=== PATIENT | female | born 1990 | race Caucasian/White ===

== ENCOUNTER 2024-08-31 17:29 | Emergency (ER) | payer OTHER ==
[2024-08-31 18:30] VITALS: TEMP 97.8
--- NOTE | 2024-08-31 18:46 | ED ---
Abdominal Pain HPI - General Source: patient, RN notes reviewed Mode of arrival: ambulatory Limitations: no limitations - History of Present Illness MD Complaint: abdominal pain Onset/Timin -: hour(s) Location: suprapubic Severity scale (1-10): 6 Quality: sharp <Clarke Mendez - Last Filed: 08/31/24 18:46> - General Source: RN notes reviewed, old records reviewed Mode of arrival: ambulatory Limitations: no limitations - History of Present Illness -: hour(s) Location: suprapubic Radiation: suprapubic Severity scale (1-10): 6 Quality: fullness, sharp Consistency: constant Improves With: nothing Worsens With: nothing Associated Symptoms: nausea, vomiting Treatments Prior to Arrival: other (0) <Ted Mojica - Last Filed: 09/04/24 21:26> - General Chief Complaint: Abdominal Pain Stated Complaint: abd pain Time Seen by Provider: 08/31/24 17:45 - History of Present Illness Initial Comments: Quick note: This is a 34-year-old female presenting with recurrent vaginal bleeding and sharp stabbing pelvic pain and contractions since 1 PM today. Patient states left-sided contractions occur for 30 seconds before resolving for 5 minutes before resuming again. Patient endorses significant blood clots initially with blood clots becoming more infrequent, often occurring with contractions. Patient states pain is 6 out of 10 during contractions. Patient endorses history of 2 tubal ligation denies concern for . Patient denies fevers, chills, N/V/D, urinary symptoms (Clarke Mendez) This is a 34-year-old female to abdominal pain severe abdominal pain here in the ER history of tubal ligation no , patient also having bleeding (Ted Mojica) - Related Data Allergies Allergy/AdvReac Type Severity Reaction Status Date / Time amoxicillin Allergy Unknown Verified 08/31/24 18:31 Penicillins Allergy Unknown Verified 08/31/24 18:31 Review of Systems ROS Other: All systems not noted in ROS Statement are negative. <Clarke Mendez - Last Filed: 08/31/24 18:46> ROS Other: All systems not noted in ROS Statement are negative. <Ted Mojica - Last Filed: 09/04/24 21:26> ROS Statement: Those systems with pertinent positive or pertinent negative responses have been documented in the HPI. Past Medical History Past Medical History: Diabetes Mellitus Additional Past Medical History / Comment(s): ovarian cysts, hypothroidism, herpes History of Any Multi-Drug Resistant Organisms: None Reported Past Surgical History: Cholecystectomy, Tubal Ligation Additional Past Surgical History / Comment(s): ovarian scrapped, Past Psychological History: Bipolar, Depression Smoking Status: Current every day smoker Past Alcohol Use History: Daily Past Drug Use History: Marijuana <Clarke Mendez - Last Filed: 08/31/24 18:46> General Exam Limitations: no limitations <Clarke Mendez - Last Filed: 08/31/24 18:46> General appearance: alert, in no apparent distress, anxious Head exam: Present: atraumatic, normocephalic, normal inspection Eye exam: Present: normal appearance, PERRL, EOMI. Absent: scleral icterus, conjunctival injection, periorbital swelling ENT exam: Present: normal exam, mucous membranes moist Neck exam: Present: normal inspection. Absent: tenderness, meningismus, lymphadenopathy Respiratory exam: Present: normal lung sounds bilaterally. Absent: respiratory distress, wheezes, rales, rhonchi, stridor Cardiovascular Exam: Present: regular rate, normal rhythm, normal heart sounds. Absent: systolic murmur, diastolic murmur, rubs, gallop, clicks GI/Abdominal exam: Present: soft, normal bowel sounds. Absent: distended, tenderness, guarding, rebound, rigid Extremities exam: Present: normal inspection, full ROM, normal capillary refill. Absent: tenderness, pedal edema, joint swelling, calf tenderness Back exam: Present: normal inspection Neurological exam: Present: alert, oriented X3, CN II-XII intact Psychiatric exam: Present: normal affect, normal mood Skin exam: Present: warm, dry, intact, normal color. Absent: rash <Ted Mojica - Last Filed: 09/04/24 21:26> - General Exam Comments Initial Comments: Visual Physical Exam Vital signs reviewed General: Well-appearing, nontoxic, no acute distress. Head: Normocephalic, atraumatic Eyes: PERRLA, EOMI ENT: Airway patent Chest: Nonlabored breathing Skin: No visual rash, normal skin tone Neuro: Alert and oriented 3 Musculoskeletal: No gross abnormalities (Clarke Mendez) Course <Ted Mojica - Last Filed: 09/04/24 21:26> Vital Signs 08/31/24 08/31/24 08/31/24 18:25 19:57 22:30 Temperature 97.8 F 97.8 F 97.8 F Pulse Rate 82 81 100 Respiratory 20 18 18 Rate Blood Pressure 134/80 129/82 129/86 O2 Sat by Pulse 98 97 100 Oximetry - Reevaluation(s) Reevaluation #1: 08/31/24 20:17 Medical records reviewed (Ted Mojica) Reevaluation #2: 08/31/24 20:17 Patient symptoms improved (Ted Mojica) Reevaluation #3: 08/31/24 20:17 Patient informed of results questions answered (Ted Mojica) Reevaluation #4: Was pt. sent in by a medical professional or institution (, PA, LITHOGRAPHY CONTACT WORKER, urgent care, hospital, or alf...) When possible be specific @ -no Did you speak to anyone other than the patient for history (EMS, parent, family, police, friend...)? What history was obtained from this source @ -no Did you review nursing and triage notes (agree or disagree)? Why? @ -agree Are old charts reviewed (outside hosp., previous admission, EMS record, old EKG, old radiological studies, urgent care reports/EKG's, alf records)? Report findings @ -yes Differential Diagnosis (chest pain, altered mental status, abdominal pain women, abdominal pain men, vaginal bleeding, weakness, fever, dyspnea, syncope, headache, dizziness, GI bleed, back pain, seizure, CVA, palpatations, mental health, musculoskeletal)? @ -prior EKG interpreted by me (3pts min.). @ -no X-rays interpreted by me (1pt min.). @ -no CT interpreted by me (1pt min.). @ -no U/S interpreted by me (1pt. min.). @ -yes negative for acute disease What testing was considered but not performed or refused? (CT, X-rays, U/S, labs)? Why? @ -none What meds were considered but not given or refused? Why? @ -none Did you discuss the management of the patient with other professionals (professionals i.e. , PA, LITHOGRAPHY CONTACT WORKER, lab, RT, psych nurse, drug abuse social worker, retirement officer, teacher, retirement officer, catalytic case operator)? Give summary @ -no Was smoking cessation discussed for >3mins.? @ -no Was critical care preformed (if so, how long)? @ -no Were there social determinants of health that impacted care today? How? (Homelessness, low income, unemployed, alcoholism, drug addiction, transportation, low edu. Level, literacy, decrease access to med. care, long term, rehab)? @ -none Was there de-escalation of care discussed even if they declined (Discuss DNR or withdrawal of care, Hospice)? DNR status @ -no What co-morbidities impacted this encounter? (DM, HTN, Smoking, COPD, CAD, Cancer, CVA, ARF, Chemo, Hep., AIDS, mental health diagnosis, sleep apnea, morbid obesity)? @ -none Was patient admitted / discharged? Hospital course, mention meds given and route, prescriptions, significant lab abnormalities, going to OR and other pertinent info. @ - 34 female to the ER for evaluation abdominal pain and vagina bleeding, patient was recently sent home from [place] secondary to this pain. Patient is not requiring pain medication here in the ER she did take her IV out in frustration of ER stay, patient is very frustrated with the fact that she was accepted to [place], she has nowhere to go, patient has normal ultrasound here in the ER and can be discharged home Discharge Undiagnosed new problem with uncertain prognosis? @ -no Drug Therapy requiring intensive monitoring for toxicity (Heparin, Nitro, Insulin, Cardizem)? @ -no Were any procedures done? @ -no Diagnosis/symptom? @ -Abdominal pain Acute, or Chronic, or Acute on Chronic? @ -Acute Uncomplicated (without systemic symptoms) or Complicated (systemic symptoms)? @ -Complicated Side effects of treatment? @ -no Exacerbation, Progression, or Severe Exacerbation? @ -exacerbation Poses a threat to life or bodily function? How? (Chest pain, [place], [place], pneumonia, PE, COPD, DKA, ARF, appy, cholecystitis, CVA, Diverticulitis, Homicidal, Suicidal, threat to staff... and all critical care pts) @ -no (Ted Mojica) Reevaluation #5: Differential Abdominal Pain Women: Appendicitis, Cholecystitis, diverticulosis, ischemic bowel, pancreatitis, hepatitis, UTI, gastroenteritis, AAA, incarcerated hernia, bowel obstruction, constipation, inflammatory bowel, hepatitis, peptic ulcer disease, splenic infarction, perforated viscus, vulvitis, ovarian torsion, PID, kidney stone, placenta abruption, this is not meant to be an all-inclusive list (Ted Mojica) Medical Decision Making <Clarke Mendez - Last Filed: 08/31/24 18:46> - Radiology Data Radiology results: report reviewed (Ultrasound pelvis negative for acute disease), image reviewed <Ted Mojica - Last Filed: 09/04/24 21:26> - Medical Decision Making I completed the quick note portion of this chart signed HAMZAH Rivero (Clarke Mendez) 34 female to the ER for evaluation abdominal pain and vagina bleeding, patient was recently sent home from [place] secondary to this pain. Patient is not requiring pain medication here in the ER she did take her IV out in frustration of ER stay, patient is very frustrated with the fact that she was accepted to [place], she has nowhere to go, patient has normal ultrasound here in the ER and can be discharged home (Ted Mojica) Disposition <Clarke Mendez - Last Filed: 08/31/24 18:46> Is patient prescribed a controlled substance at d/c from ED?: No Time of Disposition: 20:15 <Ted Mojica - Last Filed: 09/04/24 21:26> Clinical Impression: Abdominal pain Disposition: HOME SELF-CARE Condition: Good Instructions (If sedation given, give patient instructions): Abdominal Pain (ED) Referrals: None,Stated [REFERRING] - 1-2 days
[2024-08-31 19:58] VITALS: RESP 18
[2024-08-31] MEDS: LORazepam 1 MG TAB PO STA (19:58)
[2024-08-31] MEDS: HYDROcodone/APAP 5-325MG 1 EACH TAB PO STA (19:58)
--- NOTE | 2024-08-31 20:11 | US ---
EXAMINATION TYPE: US pelvic complete DATE OF EXAM: 08/31/2024 COMPARISON: NONE CLINICAL INDICATION: Female, 34 years old with history of Vag bleeding with contractions, history of tub lig; pain Transabdominal only per Doctor. Exam limited due to bowel gas. TECHNIQUE: Transabdominal (TA). FINDINGS: Date of LMP: now EXAM MEASUREMENTS: Uterus: 8.3 x 5.3 x 6.1 cm Endometrial Stripe: .9 cm Left Ovary: 2.1 x 1.5 x 1.5 cm There is some limitation due to bowel gas present. 1. Uterus: Anteverted 2. Endometrium: wnl 3. Right Ovary: Obscured by overlying bowel gas 4. Left Ovary: appears wnl 5. Bilateral Adnexa: wnl 6. Posterior cul-de-sac: wnl IMPRESSION: No suspicious acute ultrasound pelvic changes [facility], Workstation: [facility], 08/31/2024 8:08 PM
[2024-08-31 22:36] VITALS: BP 129/86; PULSE 100
== END 2024-08-31 22:30 | disposition home or self-care (01) ==
LOC: EC 17:29
CPT/HCPCS: 76856; 99284

== ENCOUNTER 2024-09-06 11:22 | Emergency (ER) | payer OTHER ==
[2024-09-06 11:52] VITALS: TEMP 98.7
[2024-09-06 12:41] LABS: Basophils # (A) 0.1 k/uL (0-0.2); Basophils % (A) 0 %; Eosinophils # (A) 0.2 k/uL (0-0.7); Eosinophils % (A) 2 %; HCT 44.9 % (34.0-46.0); HGB 15.2 gm/dL (11.4-16.0); Lymphocytes # (A) 2.1 k/uL (1.0-4.8); Lymphocytes % (A) 18 %; MCH 32.7 pg (25.0-35.0); MCHC 33.8 g/dL (31.0-37.0); MCV 96.8 fL (80.0-100.0); Mean Platelet Volume 7.3; Monocytes # (A) 0.4 k/uL (0-1.0); Monocytes % (A) 4 %; Neutrophils # (A) 8.5 k/uL (1.3-7.7); Neutrophils % (A) 75 %; Platelet Count 319 k/uL (150-450); RBC 4.64 m/uL (3.80-5.40); RDW 12.4 % (11.5-15.5); WBC 11.3 k/uL (3.8-10.6)
[2024-09-06 12:55] LABS: ALT 18 U/L (4-34); AST 17 U/L (14-36); African American GFR (CKD) >90 (>60 ml/min/1.73 sqM); Albumin 3.7 g/dL (3.5-5.0); Alkaline Phosphatase 87 U/L (38-126); Anion Gap 2 mmol/L; Blood Urea Nitrogen 16 mg/dL (7-17); Calcium 8.8 mg/dL (8.4-10.2); Carbon Dioxide 30 mmol/L (22-30); Chloride 101 mmol/L (98-107); Glucose 308 mg/dL (74-99); INR 0.9 (<1.2); Magnesium 1.8 mg/dL (1.6-2.3); Non-African American GFR(CKD) >90 (>60 ml/min/1.73 sqM); Partial Thromboplastin Time 23.5 sec (22.0-30.0); Potassium 5.2 mmol/L (3.5-5.1); Prothrombin Time 9.7 sec (10.0-12.5); Sodium 133 mmol/L (137-145); Total Bilirubin 0.4 mg/dL (0.2-1.3); Total Protein 6.3 g/dL (6.3-8.2)
--- NOTE | 2024-09-06 12:55 | XR ---
EXAMINATION TYPE: XR chest 2V DATE OF EXAM: 09/06/2024 COMPARISON: None HISTORY: 34-year-old female with chest pain TECHNIQUE: PA and lateral views FINDINGS: Heart normal size. Aorta and pulmonary vasculature within normal limits. Some stringy atelectasis in the lower lungs without consolidation or pleural effusion. IMPRESSION: Strandy atelectasis in the lower lungs. Otherwise, no acute process seen. [facility], , 09/06/2024 12:53 PM
--- NOTE | 2024-09-06 13:05 | ED ---
Chest Pain HPI - General Chief Complaint: Chest Pain Stated Complaint: Chest Pain Time Seen by Provider: 09/06/24 11:38 Source: patient, EMS, RN notes reviewed Mode of arrival: EMS - History of Present Illness Initial Comments: This is a 34-year-old female with a history of type 2 diabetes presenting to the emergency department via EMS to [facility] due to symptoms of chest pain. States that chest pain is located in the center of her chest and radiated into her back. Patient states that pain lasted for approximately 1 hour and after EMS administered medications including aspirin and nitro and fluids her sinus pain has resolved. Patient states that pain is slightly reproducible on palpation. Currently she is denying chest pain, heart palpitations, dizziness, lightheadedness, nausea, vomiting, cough, fevers, chills. She is at [facility] due to history of crack abuse. - Related Data Home Medications Medication Instructions Recorded Confirmed Glimepiride [Amaryl] 2 mg PO BID 09/06/24 09/06/24 Levothyroxine Sodium [Synthroid] 125 mcg PO DAILY 09/06/24 09/06/24 metFORMIN HCL 500 mg PO BID 09/06/24 09/06/24 valACYclovir HCL [Valacyclovir] 1,000 mg PO BID 09/06/24 09/06/24 Allergies Allergy/AdvReac Type Severity Reaction Status Date / Time amoxicillin Allergy Unknown Verified 09/06/24 14:39 Penicillins Allergy Unknown Verified 09/06/24 14:39 Review of Systems ROS Statement: Those systems with pertinent positive or pertinent negative responses have been documented in the HPI. ROS Other: All systems not noted in ROS Statement are negative. Past Medical History Past Medical History: Diabetes Mellitus, Thyroid Disorder Additional Past Medical History / Comment(s): ovarian cysts, hypothroidism, h erpes, in scared heart for cocaine History of Any Multi-Drug Resistant Organisms: None Reported Past Surgical History: Cholecystectomy, Tubal Ligation Additional Past Surgical History / Comment(s): ovarian scrapped, Past Psychological History: Bipolar, Depression Smoking Status: Current every day smoker Past Alcohol Use History: None Reported Past Drug Use History: Cocaine, Marijuana General Exam General appearance: alert, in no apparent distress Eye exam: Present: normal appearance, PERRL, EOMI. Absent: scleral icterus, conjunctival injection, periorbital swelling ENT exam: Present: normal exam, mucous membranes moist Neck exam: Present: normal inspection. Absent: tenderness, meningismus, lymphadenopathy Respiratory exam: Present: normal lung sounds bilaterally, chest wall tenderness (anterior chest wall to palaption). Absent: respiratory distress, wheezes, rales, rhonchi, stridor Cardiovascular Exam: Present: regular rate, normal rhythm, normal heart sounds. Absent: systolic murmur, diastolic murmur, rubs, gallop, clicks GI/Abdominal exam: Present: soft, normal bowel sounds. Absent: distended, tenderness, guarding, rebound, rigid Extremities exam: Present: normal inspection, full ROM, normal capillary refill. Absent: tenderness, pedal edema, joint swelling, calf tenderness Back exam: Present: normal inspection Neurological exam: Present: alert, oriented X3, CN II-XII intact Psychiatric exam: Present: normal affect, normal mood Skin exam: Present: warm, dry, intact, normal color. Absent: rash Course Vital Signs 09/06/24 09/06/24 09/06/24 11:49 12:20 15:01 Temperature 98.7 F Pulse Rate 95 95 Pulse Rate [ 80 Is Consultant ] Respiratory 16 20 Rate Blood Pressure 128/85 116/84 O2 Sat by Pulse 99 97 Oximetry Chest Pain MDM - MDM Was pt. sent in by a medical professional or institution (BRADY Guerra, CORE FEEDER, urgent care, hospital, or penitentiary...) When possible be specific @ -Was sent in by [facility] due to complaints of chest pain. Did you speak to anyone other than the patient for history (EMS, parent, family, police, friend...)? What history was obtained from this source @ -No Did you review nursing and triage notes (agree or disagree)? Why? @ -I reviewed and agree with nursing and triage notes Were old charts reviewed (outside hosp., previous admission, EMS record, old EKG, old radiological studies, urgent care reports/EKG's, penitentiary records)? Report findings @ -No old charts were reviewed Differential Diagnosis (chest pain, altered mental status, abdominal pain women, abdominal pain men, vaginal bleeding, weakness, fever, dyspnea, syncope, headache, dizziness, GI bleed, back pain, seizure, CVA, palpatations, mental health, musculoskeletal)? @ -Differential Chest Pain: Stable Angina, Unstable Angina, STEMI, NSTEMI Aortic Dissection, Pneumothorax, Musculoskeletal, Esophageal Spasm GERD, Cholecystitis, Pancreatitis, Zoster, this is not meant to be an all-inclusive list. EKG interpreted by me (3pts min.). @ -completed at 1220 sinus rhythm with a ventricular rate of 80, NH interval 133, QRS 89, QTc 395. No acute signs of ischemia. Early repolarization is evident. X-rays interpreted by me (1pt min.). @ -chest X-ray reveals standing atelectasis in lower lungs, no evidence for consolidation or effusion CT interpreted by me (1pt min.). @ -None done U/S interpreted by me (1pt. min.). @ -None done What testing was considered but not performed or refused? (CT, X-rays, U/S, labs)? Why? @ -None What meds were considered but not given or refused? Why? @ -None Did you discuss the management of the patient with other professionals (professionals i.e. , PA, CORE FEEDER, lab, RT, psych nurse, socially responsible investment adviser, load builder, teacher, placement officer, trimming caser)? Give summary @ -No Was smoking cessation discussed for >3mins.? @ -No Was critical care preformed (if so, how long)? @ -No Were there social determinants of health that impacted care today? How? (Homelessness, low income, unemployed, alcoholism, drug addiction, transportation, low edu. Level, literacy, decrease access to med. care, [facility], rehab)? @ -No Was there de-escalation of care discussed even if they declined (Discuss DNR or withdrawal of care, Hospice)? DNR status @ -No What co-morbidities impacted this encounter? (DM, HTN, Smoking, COPD, CAD, Cancer, CVA, ARF, Chemo, Hep., AIDS, mental health diagnosis, sleep apnea, morbid obesity)? @ -DM Was patient admitted / discharged? Hospital course, mention meds given and route, prescriptions, significant lab abnormalities, going to OR and other per tinent info. @ -discharged. 34-year-old female presenting EMS for chest pain. My evaluation the patient she is denying symptoms of chest pain states that they have completely resolved. Her vitals are stable. She has mild reproducible tenderness to palpation of the anterior chest. EKG reveals sinus rhythm. Chest x-ray no evidence for consolidation or effusion. Laboratory studies including CBC, CMP, coagulation profile within normal limits, 2 times troponin nonelevated less than 0.012. Patient's heart score reveals minimal clinical concern for adverse cardiac event that will occur over the next few weeks as her risk factor includes only diabetes. Patient is stable for discharge back to [facility]. All questions answered at bedside and strict return parameters discussed with the patient she is verbalized understanding. Case discussed with my attending Dr. Claros Undiagnosed new problem with uncertain prognosis? @ -No Drug Therapy requiring intensive monitoring for toxicity (Heparin, Nitro, Insulin, Cardizem)? @ -No Were any procedures done? @ -No Diagnosis/symptom? @ -Chest pain Acute, or Chronic, or Acute on Chronic? @ -Acute Uncomplicated (without systemic symptoms) or Complicated (systemic symptoms)? @ -Uncomplicated Side effects of treatment? @ -No Exacerbation, Progression, or Severe Exacerbation? @ -No Poses a threat to life or bodily function? How? (Chest pain, [place], [place], pneumonia, PE, COPD, DKA, ARF, appy, cholecystitis, CVA, Diverticulitis, Homicidal, Suicidal, threat to staff... and all critical care pts) @ -No Disposition Clinical Impression: Chest pain Disposition: HOME SELF-CARE Condition: Good Instructions (If sedation given, give patient instructions): Chest Pain (ED) Additional Instructions: Please return to the Emergency Department if symptoms worsen or any other concerns. Is patient prescribed a controlled substance at d/c from ED?: No Referrals: Harlan Garcia MD [Primary Care Provider] - 1-2 days Time of Disposition: 14:45
[2024-09-06 15:03] VITALS: BP 116/84; PULSE 95; RESP 20
== END 2024-09-06 15:07 | disposition home or self-care (01) ==
LOC: EC 11:22
CPT/HCPCS: 36415; 71046; 80053; 83735; 84484; 85025; 85610; 85730; 93005; 99285